=== PATIENT | male | born 1965 | race Caucasian/White ===

== ENCOUNTER 2017-06-22 11:05 | Observation (INO) ==
--- NOTE | 2017-06-22 11:57 | Emergency Department Note ---
Disposition Clinical Impression: Adenopathy Elevated WBC count Qualifiers: Leukocytosis type: unspecified Qualified Code(s): D72.829 - Elevated white blood cell count, unspecified Disposition: Admitted As Inpatient Condition: Good Referrals: Tiny Norwood CNP [Primary Care Provider] - Forms: Work/School Release, ED Satisfaction Letter Time of Disposition: 15:09 Abdominal Pain HPI - General Chief Complaint: ED Abdominal Pain Stated Complaint: groin pain/trouble voiding/constipation Time Seen by Provider: 06/22/17 11:22 Source: patient Mode of arrival: ambulatory Limitations: no limitations Nursing Notes Reviewed: Yes Vital Signs Reviewed: Yes - History of Present Illness HPI Narrative: 51 year old male wih HX of urinnary retention and constipation and has been evaluated and managed with simliar symptoms for the past few months. He was told it was because his constipation causes his prostate to press against his urethra; thus causing urinary retention. Ptinet states that he has had a lewis catheter before and that it helps. OAtinet states that he was following with a doctor in [place]. Patinet state that for the past 2 monnths he has had small trickle of pee and otherwise not emptying his bladder and small pellets of stool. Rezanet states he is now experiencing iincreasd suprapubic pain and that last time he passed stool was 2-3 days ago and he was most recently revaluated at [facility] for simliar symptoms. Patinet denies fevers, nausea, vomitting , or chest pain, or shortness of breath. Rezanet states that he does not have history of kidney stones He does however has a history of UTIs and is concnered that he may have another one. States that the suprapubic pain also radiates mary this bilateral inguinal areas but is not experiencing any testicular pain. or penile discharges. Pain Scale: 10 - Related Data Home Medications Medication Instructions Recorded Confirmed Lovastatin [Altoprev] 40 mg PO DAILY 06/06/17 06/06/17 Previous Rx's Medication Instructions Recorded HydrOXYzine Pamoate [Vistaril] 50 mg PO TID PRN #30 capsule 03/20/17 Ciprofloxacin [Cipro] 500 mg PO BID #14 tablet 06/01/17 Polyethylene Glycol 3350 [MiraLAX] 17 gm PO DAILY #30 powd.pack 06/06/17 Allergies Allergy/AdvReac Type Severity Reaction Status Date / Time Sulfa (Sulfonamide Allergy See Verified 06/06/17 09:17 Antibiotics) Comments Constitutional: Denies: fever, chills, weakness, weight change Eyes: Denies: eye pain, eye discharge, vision change ENT ED: Denies: ear pain, throat pain, dental pain, hearing loss, epistaxis, congestion, dysphagia Cardiovascular: Denies: chest pain, palpitations, dyspnea on exertion, edema, syncope Respiratory: Denies: cough, dyspnea, wheezes, hemoptysis, stridor Gastrointestinal: Reports: as per HPI, abdominal pain, constipation. Denies: nausea, vomiting, diarrhea, hematemesis, melena, hematochezia Genitourinary: Reports: as per HPI. Denies: urgency, dysuria, frequency, hematuria Musculoskeletal: Denies: back pain, neck pain, arthralgia, myalgia Integumentary: Denies: rash, abrasion, lesions Neurological: Denies: headache, weakness, numbness, paresthesias, confusion, abnormal gait, vertigo Psychiatric: Denies: anxiety, depression, suicidal thoughts, homicidal thoughts , auditory hallucinations, visual hallucinations Endocrine: Denies: fatigue Hematological/Lymphatic: Denies: easy bleeding, easy bruising Allergic/Immunologic: Denies: facial swelling, urticaria Abdominal Pain PMH - Past Medical History Medical history: Reports: cancer, hyperlipidemia, other Male Surgical History: Reports: other Psychiatric history: Reports: no psych history - Social History Smoking status: Current every day smoker Alcohol use: Reports: rarely Drug use: Reports: none Physical Exam - General Limitations: no limitations General appearance: alert, in no apparent distress - Head Head exam: atraumatic, normocephalic, normal inspection - Eye Eye exam: Present: normal appearance, PERRL, EOMI - Expanded Eye Exam Pupils: Left: reactive - ENT ENT exam: normal exam, normal oropharynx, mucous membranes moist - Expanded ENT Exam External ear exam: Present: normal external inspection Mouth exam: Present: normal external inspection Teeth exam: Present: normal inspection Throat exam: Present: normal inspection - Neck Neck exam: Present: normal inspection, full ROM, trachea midline - Chest Chest inspection: Present: normal inspection, symmetric chest wall rise - Respiratory Respiratory exam: Present: normal lung sounds bilaterally - Cardiovascular Cardiovascular exam: Present: regular rate, normal rhythm, normal heart sounds - Abdominal Exam Abdominal exam: Present: soft, tenderness. Absent: Non-Tender, distention, guarding, rebound, rigidity Abdominal tenderness: Present: suprapubic, moderate - Male exam: Present: normal inspection, normal testicular lie. Absent: penile swelling, lesions, ulcerations, inguinal hernia, inguinal lymphadenopathy, testicular tenderness, urethral discharge, scrotal swelling - Extremities Exam Extremities exam: Present: normal inspection, full ROM. Absent: tenderness, pedal edema - Expanded Upper Extremity Exam Shoulder exam: Present: normal inspection, full ROM Arm exam: Present: normal inspection, full ROM Elbow exam: Present: normal inspection, full ROM Forearm/Wrist exam: Present: normal inspection, full ROM Hand exam: Present: normal inspection, full ROM Vascular exam: Normal: capillary refill, radial pulse - Expanded Lower Extremity Exam Hip/Pelvis exam: Present: normal inspection, full ROM Upper leg exam: Present: normal inspection, full ROM Knee exam: Present: normal inspection, full ROM Lower leg exam: Present: normal inspection, full ROM Ankle exam: Present: normal inspection, full ROM Foot/toe exam: Present: normal inspection, full ROM Neurovascular/Tendon exam: Absent: motor deficit, sensory deficit, tendon deficit - Back Exam Back exam: Present: normal inspection, full ROM. Absent: tenderness - Neurological Exam Neurological exam: Present: alert, oriented X3 - Expanded Neurological Exam Patient oriented to: Present: person, place, time Coma Scale Eye Opening: Spontaneous Coma Scale Motor Response: Obeys Commands Coma Scale Verbal Response: Oriented Coma Scale Total: 15 - Psychiatric Psychiatric exam: Present: normal affect, normal mood - Skin Skin exam: Present: warm, dry, intact, normal color Course Course Narrative: we will place a lewis catheter and run a urinnalysis. We will also obtain labs and and KUB for constipation evaluation. My suspicion is that this is urinanry renetion and there may be an element of BPH. I do not believe this is a bowel obstruction at this time. If we can relieve the urinary retention it may help with his conspitation. - Reevaluation(s) Reevaluation #1: discused results with patient and we will continue work up with ABCT and because of the elevated WBC we will continue to look fora possile infectious source because on further interviewing of patient he states that he has had chills at night and a productive cough. Time: 12:41 Reevaluation #2: discussed results with patient. The diagnosis of lymphoma vs metastatic cancer. Nj states he was diagnoesd with cancer a few years ago and followe [facility] cancer cetner and recvoered. Nj would like to be admitted to our facility. Time: 15:07 - Consultations Consultation #1: discussed case with Dr. Ayala and she has accepted patient for admission Vital Signs Temperature 98.2 F 06/22/17 11:18 Pulse Rate 109 06/22/17 11:18 Respiratory Rate 20 06/22/17 11:18 Blood Pressure 130/77 06/22/17 11:18 O2 Sat by Pulse Oximetry 95 06/22/17 11:18 Temperature 98.2 F 06/22/17 11:18 Pulse Rate 114 06/22/17 13:00 Respiratory Rate 16 06/22/17 13:00 Blood Pressure 142/91 06/22/17 13:00 O2 Sat by Pulse Oximetry 97 06/22/17 13:00 Oxygen Delivery Oxygen Delivery Room Air Abdominal Pain - Lab Data Result diagrams: 06/22/17 12:17 06/22/17 12:17 Lab Results 06/22/17 06/22/17 06/22/17 Range/Units 12:17 12:17 12:20 WBC 19.7 H (4.3-11.1) K/mcL RBC 4.52 (4.19-5.50) M/mcL Hgb 13.7 (12.9-16.9) g/dL Hct 42.0 (37.5-50.1) % MCV 92.9 (83.0-100.0) fL MCH 30.3 (28.0-33.3) pg MCHC 32.6 (31.6-35.5) g/dL RDW 13.4 (11.5-14.5) % Plt Count 218 (140-400) K/mcL MPV 9.4 (9.4-12.4) fL Immature Gran % 1.5 (0-4) % Seg Neutrophils % 78.5 % Lymphocytes % 12.5 % Monocytes % 6.0 % Eosinophils % 1.1 % Basophils % 0.4 % Neutrophils # 15.5 H (1.6-8.9) K/mcL Lymphocytes # 2.5 (0.6-4.6) K/mcL Monocytes # 1.2 (0.0-1.3) K/mcL Eosinophils # 0.2 (0.0-0.6) K/mcL Basophils # 0.1 (0.0-0.2) K/mcL Sodium 136 (136-145) mEq/L Potassium 4.1 (3.5-4.5) mEq/L Chloride 101 (98-109) mEq/L Carbon Dioxide 29 (19-29) mEq/L BUN 13 (8-26) mg/dL Creatinine 0.86 (0.72-1.25) mg/dL Est GFR ( Amer) > 60 (> 60) Est GFR (Non-Af Amer) > 60 (> 60) BUN/Creatinine Ratio 15 (6-26) Glucose 118 H (70-99) mg/dL Calculated Osmolality 283 (280-300) Lactic Acid (0.5-2.2) mmol/L Calcium 9.7 (8.6-10.8) mg/dL Total Bilirubin 0.7 (0.2-1.2) mg/dL Direct Bilirubin (0.0-0.5) mg/dL Indirect Bilirubin (0.0-1.2) mg/dL AST 24 (5-34) Units/L ALT 50 (0-55) Units/L Alkaline Phosphatase 113 (38-126) Units/L Serum Total Protein 7.7 (6.0-8.3) g/dL Albumin 3.1 L (3.5-5.0) g/dL Globulin 4.6 H (2.4-3.5) g/dL Albumin/Globulin Ratio 0.7 L (1.1-2.2) Lipase (8-78) Units/L Urine Color Dark Yellow (Yellow) Urine Clarity Clear (Clear) Urine pH 5.5 (5.0-8.0) pH Units Ur Specific [place] 1.029 H (1.010-1.025) Urine Protein 30 H (Neg-Trace) mg/dL Urine Glucose (UA) Normal (Normal) mg/dL Urine Ketones Trace H (Negative) mg/dL Urine Blood Negative (Negative) Urine Nitrite Negative (Negative) Urine Bilirubin Small H (Negative) Urine Urobilinogen Normal (Normal) mg/dL Ur Leukocyte Esterase Negative (Negative) Urine Microscopic RBC 0-3 (0-3) per hpf Urine Microscopic WBC 0-3 (0-3) per hpf Ur Squamous Epith Cells Many H (None-Few) per lpf Urine Bacteria None Seen (None-Few) per hpf Hyaline Casts Few (None-Few) per lpf Ur Culture Indicated? NO (NO) 06/22/17 06/22/17 Range/Units 12:45 12:45 WBC (4.3-11.1) K/mcL RBC (4.19-5.50) M/mcL Hgb (12.9-16.9) g/dL Hct (37.5-50.1) % MCV (83.0-100.0) fL MCH (28.0-33.3) pg MCHC (31.6-35.5) g/dL RDW (11.5-14.5) % Plt Count (140-400) K/mcL MPV (9.4-12.4) fL Immature Gran % (0-4) % Seg Neutrophils % % Lymphocytes % % Monocytes % % Eosinophils % % Basophils % % Neutrophils # (1.6-8.9) K/mcL Lymphocytes # (0.6-4.6) K/mcL Monocytes # (0.0-1.3) K/mcL Eosinophils # (0.0-0.6) K/mcL Basophils # (0.0-0.2) K/mcL Sodium (136-145) mEq/L Potassium (3.5-4.5) mEq/L Chloride (98-109) mEq/L Carbon Dioxide (19-29) mEq/L BUN (8-26) mg/dL Creatinine (0.72-1.25) mg/dL Est GFR ( Amer) (> 60) Est GFR (Non-Af Amer) (> 60) BUN/Creatinine Ratio (6-26) Glucose (70-99) mg/dL Calculated Osmolality (280-300) Lactic Acid 1.0 (0.5-2.2) mmol/L Calcium (8.6-10.8) mg/dL Total Bilirubin 0.8 (0.2-1.2) mg/dL Direct Bilirubin 0.4 (0.0-0.5) mg/dL Indirect Bilirubin 0.4 (0.0-1.2) mg/dL AST 24 (5-34) Units/L ALT 50 (0-55) Units/L Alkaline Phosphatase 112 (38-126) Units/L Serum Total Protein 7.5 (6.0-8.3) g/dL Albumin 3.1 L (3.5-5.0) g/dL Globulin 4.4 H (2.4-3.5) g/dL Albumin/Globulin Ratio 0.7 L (1.1-2.2) Lipase 10 (8-78) Units/L Urine Color (Yellow) Urine Clarity (Clear) Urine pH (5.0-8.0) pH Units Ur Specific [place] (1.010-1.025) Urine Protein (Neg-Trace) mg/dL Urine Glucose (UA) (Normal) mg/dL Urine Ketones (Negative) mg/dL Urine Blood (Negative) Urine Nitrite (Negative) Urine Bilirubin (Negative) Urine Urobilinogen (Normal) mg/dL Ur Leukocyte Esterase (Negative) Urine Microscopic RBC (0-3) per hpf Urine Microscopic WBC (0-3) per hpf Ur Squamous Epith Cells (None-Few) per lpf Urine Bacteria (None-Few) per hpf Hyaline Casts (None-Few) per lpf Ur Culture Indicated? (NO)
[2017-06-22 12:24] LABS: Basophils # 0.1 K/mcL (0.0-0.2); Basophils % 0.4 %; Eosinophils # 0.2 K/mcL (0.0-0.6); Eosinophils % 1.1 %; Hemoglobin 13.7 g/dL (12.9-16.9); Immature Granulocytes % 1.5 % (0-4); Lymphocytes # 2.5 K/mcL (0.6-4.6); Lymphocytes % 12.5 %; Mean Corpuscular HGB Conc 32.6 g/dL (31.6-35.5); Mean Corpuscular Hemoglobin 30.3 pg (28.0-33.3); Mean Corpuscular Volume 92.9 fL (83.0-100.0); Mean Platelet Volume 9.4 fL (9.4-12.4); Monocytes # 1.2 K/mcL (0.0-1.3); Neutrophils # 15.5 K/mcL (1.6-8.9); Platelet Count 218 K/mcL (140-400); Red Blood Count 4.52 M/mcL (4.19-5.50); Red Cell Distribution Width 13.4 % (11.5-14.5); Segmented Neutrophils % 78.5 %
[2017-06-22 12:31] LABS: Bilirubin,Urine Small (Negative); Blood,Urine Negative (Negative); Clarity,Urine Clear (Clear); Color,Urine Dark Yellow (Yellow); Glucose,Urine (UA) Normal (Normal); Ketones,Urine Trace mg/dL (Negative); Leukocyte Esterase,Urine Negative (Negative); Nitrite,Urine Negative (Negative); PH,Urine 5.5 pH Units (5.0-8.0); Protein,Urine 30 mg/dL (Neg-Trace); Specific Gravity,Urine 1.029 (1.010-1.025); Urobilinogen,Urine Normal (Normal)
[2017-06-22] MEDS ORDERED: 0.9 % Sodium Chloride 1,000 ML IVC ONE ×2 (12:31→15:09)
[2017-06-22 12:34] LABS: Bacteria,Urine None Seen per hpf (None-Few); Hyaline Casts,Urine Few per lpf (None-Few); RBC,Urine 0-3 per hpf (0-3); Squamous Epithelial Cell,Urine Many per lpf (None-Few); WBC,Urine 0-3 per hpf (0-3)
[2017-06-22 12:36] LABS: Alanine Aminotransferase 50 Units/L (0-55); Albumin 3.1 g/dL (3.5-5.0); Albumin/Globulin Ratio 0.7 (1.1-2.2); Alkaline Phosphatase 113 Units/L (38-126); Aspartate Amino Transferase 24 Units/L (5-34); BUN/Creatinine Ratio 15 (6-26); Bilirubin,Total 0.7 mg/dL (0.2-1.2); Blood Urea Nitrogen 13 mg/dL (8-26); Calcium 9.7 mg/dL (8.6-10.8); Carbon Dioxide 29 mEq/L (19-29); Chloride 101 mEq/L (98-109); Globulin 4.6 g/dL (2.4-3.5); Glucose 118 mg/dL (70-99); Osmolality,Calculated 283 (280-300); Potassium 4.1 mEq/L (3.5-4.5); Sodium 136 mEq/L (136-145); Total Protein 7.7 g/dL (6.0-8.3); eGFR For African Americans > 60 (> 60); eGFR For Non-African Americans > 60 (> 60)
[2017-06-22 13:13] LABS: Albumin 3.1 g/dL (3.5-5.0); Albumin/Globulin Ratio 0.7 (1.1-2.2); Bilirubin,Direct 0.4 mg/dL (0.0-0.5); Bilirubin,Indirect 0.4 mg/dL (0.0-1.2); Bilirubin,Total 0.8 mg/dL (0.2-1.2); Globulin 4.4 g/dL (2.4-3.5); Total Protein 7.5 g/dL (6.0-8.3)
[2017-06-22] MEDS ORDERED: Ketorolac 30 MG/ML VIAL IVP ONE (14:36)
[2017-06-22] MEDS ORDERED: *HR* Morphine 2 MG/ML SYRINGE IVP ONE (15:09)
--- NOTE | 2017-06-22 17:00 | Oncology Inp Consult Note ---
Date of Encounter: 06/22/17 Time of Encounter: 17:00 Assessment and Plan (1) Adenopathy Status: Acute Assessment and plan: Lymphadenopathy, and CT imaging with retroperitoneal common iliac external iliac adenopathy, consider IR biopsy of the lymph node for tissue diagnosis. SC Lns palpable but tiny, may consider for bx as well. Patient is a prior history of non-Hodgkin's lymphoma status post treatment in 2004 at [facility]. Consider complete staging workup with a CT chest versus PET imaging as an outpatient. CEA, PSA added. Labs neutrophilia, leucocytosis noted , reactive. He is scheduled for outpatient colonoscopy procedure in . Will obtain further information on Rx of NHL from [facility]. Plan of care d/w patient in detail, f/u with staging w/u and bx. - Data of Consult Requesting Physician: Kevin Gardner MD Primary Care Provider: Tiny Norwood CNP - Consult Narrative Reason for consult: adenopathy History of present illness: Mr. Lamas is a 51 year old male cr smoking history, of UTIs, urinary retention , hospitalized with leucocytosis, lower abd pain also radiating to groin area. Workup shows diffuse low attenuation in the liver characteristic of hepatic steatosis, metastatic disease could not be ruled out, multiple enlarged retroperitoneal common iliac right external iliac lymphadenopathy left external iliac lymph node measures 2.2 x 3.5 cm per report, suspicious for neoplasm, PET/ CT was recommended. Count was 19.7 neutrophils at 15.5 elevated with a normal BUN and creatinine and normal liver function tests, LDH was normal. UA shows squam epithelial cells wo bacteria. The patient at bedside today, patient gives a prior diagnosis of non-Hodgkin's lymphoma, status post treatment at [facility] in 2004, he had a biopsy of the lymph node in the right axillary region. Review of systems is significant for on and off constipation and difficulty with urination over the last 5 months or so. He denies any blood in stool. He is scheduled for colonoscopy in July of this year. He denies any pain. He has some sweats but denies any drenching night sweats. Past Med Surg Social Fam HX - Past Medical History Medical history: cancer, hyperlipidemia, other Psychiatric history: no psych history - Past Surgical History Surgical History: non-contributory - Social History Smoking Status: Current every day smoker Smokeless Tobacco Status: No Alcohol use: rarely Drug use: none - Family History Mother Living Status: Age at : 65 Hx Family Cardiac Disorders: Yes Hx Family Respiratory Disorders: Yes Hx Family Cancer: Yes Hx Family Genitourinary Disorders: No Hx Family Endocrine Disorder: Yes (Diabetes) Hx Family Musculoskeletal Disorders: No Hx Family Neuromuscular Disorders: No Hx Family Neurologic Disorders: No Hx Family HEENT Disorders: No Hx Family Autoimmune Disorders: No Hx Family Reproductive Disorders: No Hx Family Psychosocial Disorders: No Hx Family Medical Disorders: No Father Living Status: Age at : 67 Cause of : Cancer Medications and Allergies Cetirizine HCl 10 mg PO DAILY 06/22/17 [History] Ciclopirox Olamine [Ciclopirox] 1 appl TP BID PRN 06/22/17 [History] Ketotifen Fumarate [Zaditor] 1 drop OP BID 06/22/17 [History] Lovastatin [Lovastatin] 40 mg PO HS 06/22/17 [History] Polyethylene Glycol 3350 [MiraLAX] 17 gm PO DAILY PRN 06/22/17 [History] Triamcinolone Acet 0.1% CRM [Kenalog] 1 appl TP BID PRN 06/22/17 [History] hydrOXYzine HCl [Hydroxyzine HCl] 12.5 - 50 mg PO Q8H PRN 06/22/17 [History] Allergies Sulfa (Sulfonamide Antibiotics) Allergy (Verified 06/06/17 09:17) See Comments Patient states he doens't know what kind of reaction he has Review of systems: per HPI Oncology - Exam - Constitutional Vitals: Temp Pulse Resp BP Pulse Ox 98.2 F 115 16 121/64 96 06/22/17 11:18 06/22/17 15:00 06/22/17 16:15 06/22/17 16:15 06/22/17 15:00 General appearance: obese - Head Head exam: Present: atraumatic, normal inspection - Eye Eye exam: Present: sclera anicteric - ENT ENT exam: Present: mucous membranes moist - Neck Additional comments: left SC Lns tiny palpable - Respiratory Respiratory exam: Present: CTAB - Cardiovascular Cardiovascular exam: Present: +S1, +S2 - GI/Abdominal GI/Abdominal exam: Present: distended, soft - Extremities Exam Extremities exam: Present: normal inspection - Neurological Exam Neurological exam: Present: alert, CN II-XII intact, oriented X3, no focal deficits Oncology - Results - Imaging and Cardiology CT scan - abdomen Status: image reviewed by me Consult Discharge Plan - Plan Referrals: Tiny Norwood CNP [Primary Care Provider] -
[2017-06-22] MEDS ORDERED: Naloxone 0.4 MG/ML INJ IVP PRN (17:06)
[2017-06-22] MEDS ORDERED: Ondansetron 4 MG/2 ML VIAL IVP PRN (17:06)
[2017-06-22] MEDS ORDERED: Acetaminophen 325 MG TABLET PO PRN (17:06)
[2017-06-22] MEDS ORDERED: Ketorolac 30 MG/ML VIAL IVP PRN (17:06)
--- NOTE | 2017-06-22 17:29 | Internal Med History&Physical ---
<Gayatri Coyne M - Last Filed: 06/22/17 17:18> Date of Encounter: 06/22/17 Time of Encounter: 17:18 Assessment and Plan (1) Adenopathy Current visit: Yes Status: Acute Patient presented with pelvic pain and difficulty urinating and passing stool. CT abd/pelvis shows multiple enlarged retroperitoneal, right common iliac and right external iliac adenopathy, with differential diagnosis including lymphoma vs. testicular zain metastasis. Patient has history of Hodgkin's lymphoma in 2004, in remission. With history of previous lymphoma, concern for recurrence. Consulted oncology. (2) Elevated WBC count Current visit: Yes Status: Acute WBC of 19.7. Patient reporting chills and sweats. He was tachycardic on presentation with HR in 110s. He was afebrile. He meets SIRS criteria with unclear source of infection. UA negative for UTI. CXR showed no acute cardiopulmonary process. Blood cultures drawn and sent. Elevated WBC, chills and sweats may be secondary to lymphoma. Oncology consulted. Patient given Cipro by ED, will hold off on further antibiotics for now. Qualifiers: Leukocytosis type: unspecified Qualified Code(s): D72.829 - Elevated white blood cell count, unspecified (3) Difficulty urinating Current visit: Yes Status: Acute Patient reports difficulty passing urine, with only dribbling over the last few weeks. He was diagnosed with UTI and treated with antibiotics. UA today negative for infection, however WBC elevated and patient tachycardic. ED gave Cipro as previous Urine culture was sensitive to cipro. CT abd/pelvis shows multiple lymphadenopathy in pelvis and retroperitoneal area which is likely contributing to patient's urinary retention. PSA is normal. Altamirano catheter placed. IV fluids 0.9NS at 100mL/hr. (4) Constipation Current visit: Yes Status: Acute Patient complains of constipation with only passing small amount of hard stool. Abdomen distended. Patient is able to tolerate PO. CT abdomen and pelvis showed multiple lymphadenopathy in pelvis and retroperitoneal area which may be contributing to symptoms. Colace BID scheduled Miralax daily PRN. Qualifiers: Constipation type: unspecified constipation type Qualified Code(s): K59.00 - Constipation, unspecified (5) Pelvic pain Current visit: Yes Status: Acute Patient reporting pelvic pain and difficulty passing urine and stool. CT shows pelvic lymphadenopathy. [place], toradol, morphine PRN for pain Narcan PRN for respiratory depression. (6) DVT prophylaxis Current visit: Yes Status: Acute anti-embolic stockings Lovenox SQ daily Internal Medicine - H&P: HPI Chief complaint: pelvic pain Admitted From: Emergency Dept Plans for Post Hospital Care: Home History of present illness: Mr. Lamas is a 51 year old male with hyperlipidemia, history of Hodgkin's lymphoma 2004, now in remission who presented to ED today with complaints of pelvic and groin pain and difficulty passing urine or stool. Patient reports he has had this issue for several weeks, only able to dribble urine and pass small, hard stool. He reports his abdomen is distended. He is able to tolerate food, but is afraid to eat too much. He has presented to Urgent care with these complaints and was recently diagnosed with a UTI for which he took antibiotics, he was also started on miralax to relieve his constipation. However , his symptoms did not improve. He also reports chills and sweats. He denies any lightheadedness, chest pain, palpitations, shortness of breath. He reports cough productive of white sputum, chronic in nature. Evaluation in the ED included UA which was negative for UTI. CXR showed no acute cardiopulmonary process. His WBC was elevated at 19.7 and he was tachycardic with HR in the 110s. CT of the abd and pelvis showed multiple enlarged retroperitoneal, right common iliac and right external iliac adenopathy, with differential diagnosis including lymphoma vs. testicular zain metastasis. He was given 2L of fluid boluses in the ED and given cipro IVPB, morphine and toradol. On exam, patient was alert and oriented in no acute distress. Heart had regular rate (in the 90s ) and rhythm. Lungs were clear to auscultation bilaterally. Abdomen was distended, but soft. Had positive bowel sounds. He was diffusely tender to palpation, but worse in epigastric area, over the bladder and in the groin area. No peripheral edema. Past Med Surg Social Fam HX - Past Medical History Medical history: cancer (Hodgkin's lymphoma 2004), hyperlipidemia, other Psychiatric history: no psych history - Past Surgical History Surgical History: herniorrhaphy - Social History Smoking Status: Current every day smoker (42 pack year history) Packs per day: 1 Smokeless Tobacco Status: No Alcohol use: rarely Drug use: none - Family History Mother Living Status: Age at : 65 Hx Family Cardiac Disorders: Yes Hx Family Respiratory Disorders: Yes Hx Family Cancer: Yes Hx Family Genitourinary Disorders: No Hx Family Endocrine Disorder: Yes (Diabetes) Hx Family Musculoskeletal Disorders: No Hx Family Neuromuscular Disorders: No Hx Family Neurologic Disorders: No Hx Family HEENT Disorders: No Hx Family Autoimmune Disorders: No Hx Family Reproductive Disorders: No Hx Family Psychosocial Disorders: No Hx Family Medical Disorders: No Father Living Status: Age at : 67 Cause of : Cancer Internal Medicine - H&P: Meds Cetirizine HCl 10 mg PO DAILY 06/22/17 [History] Ciclopirox Olamine [Ciclopirox] 1 appl TP BID PRN 06/22/17 [History] Ketotifen Fumarate [Zaditor] 1 drop OP BID 06/22/17 [History] Lovastatin [Lovastatin] 40 mg PO HS 06/22/17 [History] Polyethylene Glycol 3350 [MiraLAX] 17 gm PO DAILY PRN 06/22/17 [History] Triamcinolone Acet 0.1% CRM [Kenalog] 1 appl TP BID PRN 06/22/17 [History] hydrOXYzine HCl [Hydroxyzine HCl] 12.5 - 50 mg PO Q8H PRN 06/22/17 [History] Allergies Sulfa (Sulfonamide Antibiotics) Allergy (Verified 06/06/17 09:17) See Comments Patient states he doens't know what kind of reaction he has All Systems PM: A 10-system review of systems was performed and is negative for pertinent findings except as documented above in the HPI. - Constitutional Constitutional: chills, night sweats, no fever(s) - EENT Eyes: no change in vision, no discharge, no pain, no photophobia Ears: no ear discharge, no ear pain, no tinnitus Nose, mouth and throat: no dysphagia, no nasal discharge, no neck pain, no sore throat - Cardiovascular Cardiovascular ROS IM: no chest pain, no diaphoresis, no dyspnea, no lightheadedness, no palpitations, no syncope - Respiratory Respiratory: cough, no dyspnea, no wheezing, no excessive phlegm production - Gastrointestinal Gastrointestinal: abdominal pain, constipation, no diarrhea, no hematemesis, no hematochezia, no melena, no nausea, no vomiting - Genitourinary Genitourinary ROS male: difficulty urinating, dysuria - Musculoskeletal Musculoskeletal ROS IM: no numbness, no tingling - Integumentary Integumentary IM: no rash, no unusual bruising - Neurological Neurological ROS: no confusion, no convulsions, no focal weakness, no numbness, no tingling, no tremor(s) - Hematologic/Lymphatic Hematologic/Lymphatic: no easy bruising - Constitutional Vitals: Temp Pulse Resp BP Pulse Ox 98.2 F 115 16 121/64 96 06/22/17 11:18 06/22/17 15:00 06/22/17 16:15 06/22/17 16:15 06/22/17 15:00 General appearance: Present: A&O X 3, pleasant, no acute distress, obese - Head Head exam: Present: atraumatic, normocephalic - Eye Eye exam: Present: PERRL, conjuntiva pink, sclera anicteric Pupils: Present: PERRL - Neck Neck exam general surgery: Present: supple, trachea midline. Absent: lymphadenopathy - Respiratory Respiratory exam: Present: CTAB. Absent: accessory muscle use, rales, rhonchi, wheezes - Cardiovascular Cardiovascular exam: Present: RRR, +S1, +S2. Absent: diastolic murmur, gallop, rubs, systolic murmur - GI/Abdominal GI/Abdominal exam: Present: distended, normal bowel sounds, soft, tenderness, no peritoneal signs - exam: Present: normal inspection - Extremities Exam Extremities exam: Present: warm, radial pulses palpable and symmetrical. Absent : calf tenderness, cyanotic, pedal edema - Neurological Exam Neurological exam: Present: CN II-XII intact, oriented X3, no focal deficits. Absent: facial droop, speech deficit - Skin Skin exam: Present: dry, intact Internal Med - H&P Results - Labs CBC & Chem 7: 06/22/17 12:17 06/22/17 12:17 Labs: All Lab Results (24 Hours) 06/22/17 06/22/17 06/22/17 Range/Units 12:17 12:17 12:20 WBC 19.7 H (4.3-11.1) K/mcL RBC 4.52 (4.19-5.50) M/mcL Hgb 13.7 (12.9-16.9) g/dL Hct 42.0 (37.5-50.1) % MCV 92.9 (83.0-100.0) fL MCH 30.3 (28.0-33.3) pg MCHC 32.6 (31.6-35.5) g/dL RDW 13.4 (11.5-14.5) % Plt Count 218 (140-400) K/mcL MPV 9.4 (9.4-12.4) fL Immature Gran % 1.5 (0-4) % Seg Neutrophils % 78.5 % Lymphocytes % 12.5 % Monocytes % 6.0 % Eosinophils % 1.1 % Basophils % 0.4 % Neutrophils # 15.5 H (1.6-8.9) K/mcL Lymphocytes # 2.5 (0.6-4.6) K/mcL Monocytes # 1.2 (0.0-1.3) K/mcL Eosinophils # 0.2 (0.0-0.6) K/mcL Basophils # 0.1 (0.0-0.2) K/mcL Sodium 136 (136-145) mEq/L Potassium 4.1 (3.5-4.5) mEq/L Chloride 101 (98-109) mEq/L Carbon Dioxide 29 (19-29) mEq/L BUN 13 (8-26) mg/dL Creatinine 0.86 (0.72-1.25) mg/dL Est GFR ( Amer) > 60 (> 60) Est GFR (Non-Af Amer) > 60 (> 60) BUN/Creatinine Ratio 15 (6-26) Glucose 118 H (70-99) mg/dL Calculated Osmolality 283 (280-300) Lactic Acid (0.5-2.2) mmol/L Calcium 9.7 (8.6-10.8) mg/dL Total Bilirubin 0.7 (0.2-1.2) mg/dL Direct Bilirubin (0.0-0.5) mg/dL Indirect Bilirubin (0.0-1.2) mg/dL AST 24 (5-34) Units/L ALT 50 (0-55) Units/L Alkaline Phosphatase 113 (38-126) Units/L Lactate Dehydrogenase (159-327) Units/L Serum Total Protein 7.7 (6.0-8.3) g/dL Albumin 3.1 L (3.5-5.0) g/dL Globulin 4.6 H (2.4-3.5) g/dL Albumin/Globulin Ratio 0.7 L (1.1-2.2) Lipase (8-78) Units/L Prostate Specific Ag (0.00-4.00) ng/mL Urine Color Dark Yellow (Yellow) Urine Clarity Clear (Clear) Urine pH 5.5 (5.0-8.0) pH Units Ur Specific [place] 1.029 H (1.010-1.025) Urine Protein 30 H (Neg-Trace) mg/dL Urine Glucose (UA) Normal (Normal) mg/dL Urine Ketones Trace H (Negative) mg/dL Urine Blood Negative (Negative) Urine Nitrite Negative (Negative) Urine Bilirubin Small H (Negative) Urine Urobilinogen Normal (Normal) mg/dL Ur Leukocyte Esterase Negative (Negative) Urine Microscopic RBC 0-3 (0-3) per hpf Urine Microscopic WBC 0-3 (0-3) per hpf Ur Squamous Epith Cells Many H (None-Few) per lpf Urine Bacteria None Seen (None-Few) per hpf Hyaline Casts Few (None-Few) per lpf Ur Culture Indicated? NO (NO) 06/22/17 06/22/17 06/22/17 Range/Units 12:45 12:45 16:42 WBC (4.3-11.1) K/mcL RBC (4.19-5.50) M/mcL Hgb (12.9-16.9) g/dL Hct (37.5-50.1) % MCV (83.0-100.0) fL MCH (28.0-33.3) pg MCHC (31.6-35.5) g/dL RDW (11.5-14.5) % Plt Count (140-400) K/mcL MPV (9.4-12.4) fL Immature Gran % (0-4) % Seg Neutrophils % % Lymphocytes % % Monocytes % % Eosinophils % % Basophils % % Neutrophils # (1.6-8.9) K/mcL Lymphocytes # (0.6-4.6) K/mcL Monocytes # (0.0-1.3) K/mcL Eosinophils # (0.0-0.6) K/mcL Basophils # (0.0-0.2) K/mcL Sodium (136-145) mEq/L Potassium (3.5-4.5) mEq/L Chloride (98-109) mEq/L Carbon Dioxide (19-29) mEq/L BUN (8-26) mg/dL Creatinine (0.72-1.25) mg/dL Est GFR ( Amer) (> 60) Est GFR (Non-Af Amer) (> 60) BUN/Creatinine Ratio (6-26) Glucose (70-99) mg/dL Calculated Osmolality (280-300) Lactic Acid 1.0 (0.5-2.2) mmol/L Calcium (8.6-10.8) mg/dL Total Bilirubin 0.8 (0.2-1.2) mg/dL Direct Bilirubin 0.4 (0.0-0.5) mg/dL Indirect Bilirubin 0.4 (0.0-1.2) mg/dL AST 24 (5-34) Units/L ALT 50 (0-55) Units/L Alkaline Phosphatase 112 (38-126) Units/L Lactate Dehydrogenase 296 (159-327) Units/L Serum Total Protein 7.5 (6.0-8.3) g/dL Albumin 3.1 L (3.5-5.0) g/dL Globulin 4.4 H (2.4-3.5) g/dL Albumin/Globulin Ratio 0.7 L (1.1-2.2) Lipase 10 (8-78) Units/L Prostate Specific Ag 0.64 (0.00-4.00) ng/mL Urine Color (Yellow) Urine Clarity (Clear) Urine pH (5.0-8.0) pH Units Ur Specific [place] (1.010-1.025) Urine Protein (Neg-Trace) mg/dL Urine Glucose (UA) (Normal) mg/dL Urine Ketones (Negative) mg/dL Urine Blood (Negative) Urine Nitrite (Negative) Urine Bilirubin (Negative) Urine Urobilinogen (Normal) mg/dL Ur Leukocyte Esterase (Negative) Urine Microscopic RBC (0-3) per hpf Urine Microscopic WBC (0-3) per hpf Ur Squamous Epith Cells (None-Few) per lpf Urine Bacteria (None-Few) per hpf Hyaline Casts (None-Few) per lpf Ur Culture Indicated? (NO) - Diagnostic Studies Chest x-ray Additional comments: Chest X-Ray 06/22/17 12:36 IMPRESSION: No acute cardiopulmonary process identified. D/ / Murali Suarez MD / Murali Suarez MD Interpreting Provider: Murali Suarez MD CT scan - abdomen Additional comments: Abdomen/Pelvis CT 06/22/17 12:28 IMPRESSION: 1. Multiple enlarged retroperitoneal, right common iliac and right external iliac adenopathy. The differential diagnosis includes lymphoma versus testicular zain metastasis. Consider further evaluation with PET-CT and correlation with physical exam. 2. Multiple indeterminate low-attenuation lesions throughout the liver favoring a benign etiology, but cannot exclude metastatic disease. Consider further evaluation with nonemergent MRI of the abdomen with and without contrast using hemangioma protocol D/ / sIh Blevins MD / Ish Blevins MD Interpreting Provider: Ish Blevins MD Abdominal x-ray Additional comments: KUB X-Ray 06/22/17 12:00 IMPRESSION: 1. Normal bowel gas pattern without evidence of obstruction. 2. Indeterminate circular radiopaque density overlying the right ilium. 3. Sequela of remote trauma involving bilateral superior and inferior pubic rami as well as the pubic symphysis. D/ / 06/22/2017 12:15:39 Jayro Oconnor MD / amando Interpreting Provider: Jayro Oconnor MD <Ricky Ayala - Last Filed: 06/22/17 18:51> Date of Encounter: 06/22/17 Internal Medicine - H&P: HPI History of present illness: Mr. Lamas is a 51 year old male All Systems PM: A 10-system review of systems was performed and is negative for pertinent findings except as documented above in the HPI. - Constitutional Vitals: Temp Pulse Resp BP Pulse Ox 98.3 F 94 20 105/71 94 06/22/17 17:20 06/22/17 17:20 06/22/17 17:20 06/22/17 17:20 06/22/17 17:20 Internal Med - H&P Results - Labs CBC & Chem 7: 06/22/17 12:17 06/22/17 12:17 - Attending Attestation I examined this patient and my medical decision-making was reviewed with the FIELD PRODUCER. I agree with the documented findings, disposition and treatment plan as described .
[2017-06-22] MEDS: *HR* HYDROcodone/Acet 5/325 mg TABLET PO PRN (17:59)
[2017-06-22] MEDS: 0.9 % Sodium Chloride 1,000 ML IVC SCH (17:59)
[2017-06-22] MEDS: *HR* Morphine 2 MG/ML SYRINGE IVP PRN (20:27)
[2017-06-23] MEDS: *HR* Morphine 2 MG/ML SYRINGE IVP PRN ×3 (00:50→09:49)
[2017-06-23] MEDS: *HR* HYDROcodone/Acet 5/325 mg TABLET PO PRN ×5 (02:44→20:25)
[2017-06-23 05:45] LABS: Basophils % 0.3 %; Eosinophils # 0.3 K/mcL (0.0-0.6); Eosinophils % 1.9 %; Hematocrit 34.5 % (37.5-50.1); Lymphocytes # 1.7 K/mcL (0.6-4.6); Mean Corpuscular HGB Conc 33.6 g/dL (31.6-35.5); Mean Corpuscular Hemoglobin 31.3 pg (28.0-33.3); Mean Platelet Volume 9.7 fL (9.4-12.4); Neutrophils # 11.2 K/mcL (1.6-8.9); Platelet Count 170 K/mcL (140-400); Red Blood Count 3.71 M/mcL (4.19-5.50); Red Cell Distribution Width 13.5 % (11.5-14.5); Segmented Neutrophils % 77.8 %
[2017-06-23 05:48] LABS: Hemoglobin 11.6 g/dL (12.9-16.9)
[2017-06-23] MEDS: *HR* Enoxaparin 40 MG/0.4 ML SYRINGE SQ SCH (05:54)
[2017-06-23] MEDS: 0.9 % Sodium Chloride 1,000 ML IVC SCH (06:01)
[2017-06-23 06:02] LABS: BUN/Creatinine Ratio 18 (6-26); Blood Urea Nitrogen 13 mg/dL (8-26); Calcium 8.7 mg/dL (8.6-10.8); Carbon Dioxide 23 mEq/L (19-29); Chloride 106 mEq/L (98-109); Glucose 117 mg/dL (70-99); Osmolality,Calculated 287 (280-300); Potassium 4.1 mEq/L (3.5-4.5); Sodium 138 mEq/L (136-145); eGFR For African Americans > 60 (> 60); eGFR For Non-African Americans > 60 (> 60)
[2017-06-23 06:16] LABS: INR 1.3; Prothrombin Time 13.6 Seconds (9.4-12.1)
--- NOTE | 2017-06-23 13:56 | Internal Med Progress Note ---
Date of Encounter: 06/23/17 Time of Encounter: 08:30 - Assessment and plan (1) Adenopathy Current Visit: Yes Status: Acute Assessment and plan: Patient with history of Hodgkin's lymphoma. Evaluated by oncology. Recommended lymph node biopsy. Interventional radiology has been consulted for CT-guided biopsy. Patient reporting sweats and feeling hot. Concern for constitutional symptoms related to Hodgkin's lymphoma. (2) Constipation Current Visit: Yes Status: Acute Assessment and plan: Remains constipated but passing gas. We will add bisacodyl to treatment plan. Qualifiers: Constipation type: unspecified constipation type Qualified Code(s): K59.00 - Constipation, unspecified (3) Difficulty urinating Current Visit: Yes Status: Acute Assessment and plan: Patient has had multiple visits to the ER for similar complaints. May have underlying BPH although PSA is normal. Having good urine output through Altamirano catheter. Will start Flomax. May discharge patient with Altamirano catheter and arrange outpatient follow-up with urology when medically stable. (4) Elevated WBC count Current Visit: Yes Status: Acute Assessment and plan: WBC count is improving. No source of infection identified. Patient was receiving ciprofloxacin. We will stop antibiotics for now. Qualifiers: Leukocytosis type: unspecified Qualified Code(s): D72.829 - Elevated white blood cell count, unspecified (5) Pelvic pain Current Visit: Yes Status: Acute (6) DVT prophylaxis Current Visit: Yes Status: Acute - Subjective Interval history: Patient continues to have some abdominal pain and discomfort. No nausea or vomiting. Passing flatus but has not had any bowel movement. Has had good urine output through the Altamirano catheter. Complains of sweats and feeling hot. - Constitutional Vitals: Temp Pulse Resp BP Pulse Ox 99.4 F 86 20 107/70 94 06/23/17 11:28 06/23/17 11:28 06/23/17 11:28 06/23/17 11:28 06/23/17 11:28 General appearance: Present: mild distress, A&O X 3, pleasant, obese, answers questions appropriately - Neck Neck exam general surgery: Present: supple, trachea midline. Absent: lymphadenopathy - Respiratory Respiratory exam: Present: CTAB. Absent: accessory muscle use, rales, rhonchi, wheezes - Cardiovascular Cardiovascular exam: Present: RRR, +S1, +S2. Absent: diastolic murmur, gallop, rubs, systolic murmur - GI/Abdominal GI/Abdominal exam: Present: distended, normal bowel sounds, soft, no peritoneal signs. Absent: tenderness - Extremities Exam Extremities exam: Present: warm, radial pulses palpable and symmetrical. Absent : calf tenderness, cyanotic, pedal edema - Neurological Exam Neurological exam: Present: alert, oriented X3, no focal deficits. Absent: facial droop, speech deficit Internal Medicine: Result - Labs CBC & Chem 7: 06/23/17 05:31 06/23/17 05:31 Labs: Short CBC 06/23/17 Range/Units 05:31 WBC 14.4 H (4.3-11.1) K/mcL Hgb 11.6 L D (12.9-16.9) g/dL Hct 34.5 L (37.5-50.1) % Plt Count 170 (140-400) K/mcL Neutrophils # 11.2 H (1.6-8.9) K/mcL BMP 06/23/17 05:31 Sodium 138 Potassium 4.1 Chloride 106 Carbon Dioxide 23 BUN 13 Creatinine 0.73 Glucose 117 H Calcium 8.7 - ABG Interpretation ABG results: PT/INR, D-dimer PT 13.6 Seconds (9.4-12.1) H 06/23/17 05:31 Consult Discharge Plan - Plan Referrals: Tiny Norwood CNP [Primary Care Provider] - 06/29/17 1:00 pm
[2017-06-23] MEDS ORDERED: Bisacodyl 10 MG RECTAL SUPPOSITORY RC PRN (14:13)
[2017-06-23] MEDS ORDERED: *HR* Midazolam HCl 2 MG/2 ML VIAL IVP PRN (15:09)
[2017-06-23] MEDS ORDERED: *HR* FentaNYL (PF) 100 MCG/2 ML VIAL IVP PRN (15:09)
--- NOTE | 2017-06-23 15:16 | Pre-Sedation Evaluation ---
Pre-sedation evaluation - Pre-sedation checklist Date of procedure: 06/23/17 Procedure: LN bx Recent Vitals: Last Vital Signs Temp 99.4 F 06/23/17 11:28 Pulse 86 06/23/17 11:28 Resp 20 06/23/17 11:28 BP 107/70 06/23/17 11:28 Pulse Ox 94 06/23/17 11:28 Dietary Status: NPO 6 hours prior to procedure Airway Assessment: Patient can open mouth completely, TMJ function normal, Micrognathia (under-bite, receding chin) absent, Neck with adequate range of motion ASA Classification *see protocol: CLASS II-Mild systemic disease Plan of Care: Pt appropriate candidate for procedure/moderate/conscious sedation , Risks/benefits of procedure/sedation discussed w/ patient/family, If not NPO; Risk of intake outweiged by necessity to perform procedure
--- NOTE | 2017-06-23 16:08 | IR Procedure Note ---
Date of procedure: 06/23/17 Consent Obtained: Verbal consent, Written consent Timeout: Correct patient and procedure verified, Correct site verified, Time out performed, Skin prep completed Local anesthetic: Lidocaine 1% Indications: NHL Procedure Performed: LN Bx Site/Technique: left neck Estimated blood loss (cc): 2 Complications: None; Tolerated procedure well Post Procedure Treatment Plan: bedrest x 1 hour with HOB > 30 degrees
[2017-06-24] MEDS: *HR* HYDROcodone/Acet 5/325 mg TABLET PO PRN (00:51)
[2017-06-24] MEDS: *HR* Morphine 2 MG/ML SYRINGE IVP PRN ×2 (03:03→10:34)
[2017-06-24] MEDS: *HR* Enoxaparin 40 MG/0.4 ML SYRINGE SQ SCH (05:06)
[2017-06-24 06:17] LABS: Basophils % 0.2 %; Eosinophils # 0.2 K/mcL (0.0-0.6); Eosinophils % 1.5 %; Hematocrit 35.2 % (37.5-50.1); Hemoglobin 11.5 g/dL (12.9-16.9); Immature Granulocytes % 1.3 % (0-4); Lymphocytes # 1.5 K/mcL (0.6-4.6); Lymphocytes % 8.9 %; Mean Corpuscular HGB Conc 32.7 g/dL (31.6-35.5); Mean Corpuscular Hemoglobin 30.2 pg (28.0-33.3); Mean Corpuscular Volume 92.4 fL (83.0-100.0); Mean Platelet Volume 9.9 fL (9.4-12.4); Monocytes % 6.1 %; Neutrophils # 13.4 K/mcL (1.6-8.9); Platelet Count 175 K/mcL (140-400); Red Blood Count 3.81 M/mcL (4.19-5.50); Red Cell Distribution Width 13.4 % (11.5-14.5)
[2017-06-24 06:32] LABS: BUN/Creatinine Ratio 14 (6-26); Blood Urea Nitrogen 9 mg/dL (8-26); Calcium 8.7 mg/dL (8.6-10.8); Carbon Dioxide 23 mEq/L (19-29); Chloride 101 mEq/L (98-109); Glucose 130 mg/dL (70-99); Osmolality,Calculated 276 (280-300); Potassium 3.8 mEq/L (3.5-4.5); Sodium 133 mEq/L (136-145); eGFR For African Americans > 60 (> 60); eGFR For Non-African Americans > 60 (> 60)
[2017-06-24 11:21] VITALS: BP 133/85
--- NOTE | 2017-06-24 13:39 | Discharge Summary ---
Date of Encounter: 06/24/17 Time of Encounter: 13:37 - Discharge Diagnosis (1) Adenopathy Priority: Primary Status: Acute (2) Constipation Priority: Secondary Status: Acute Qualifiers: Constipation type: unspecified constipation type Qualified Code(s): K59.00 - Constipation, unspecified (3) Difficulty urinating Priority: Secondary Status: Acute (4) Elevated WBC count Priority: Secondary Status: Acute Qualifiers: Leukocytosis type: unspecified Qualified Code(s): D72.829 - Elevated white blood cell count, unspecified (5) Pelvic pain Priority: Secondary Status: Acute (6) DVT prophylaxis Priority: Secondary Status: Acute - Discharge Medications Prescriptions: Amoxicillin/Clavulanate [Augmentin] 875 mg PO BIDWM #14 tablet Tamsulosin [Flomax] 0.4 mg PO DAILY #30 cap.er.24h Home Medications: Cetirizine HCl 10 mg PO DAILY 06/22/17 [History] Ciclopirox Olamine [Ciclopirox] 1 appl TP BID PRN 06/22/17 [History] Ketotifen Fumarate [Zaditor] 1 drop OP BID 06/22/17 [History] Lovastatin 40 mg PO HS 06/22/17 [History] Polyethylene Glycol 3350 [MiraLAX] 17 gm PO DAILY PRN 06/22/17 [History] Triamcinolone Acet 0.1% CRM [Kenalog] 1 appl TP BID PRN 06/22/17 [History] hydrOXYzine HCl [Hydroxyzine HCl] 12.5 - 50 mg PO Q8H PRN 06/22/17 [History] Amoxicillin/Clavulanate [Augmentin] 875 mg PO BIDWM #14 tablet 06/24/17 [Rx] Docusate [Colace] 100 mg PO BID 06/24/17 [Rx] Tamsulosin [Flomax] 0.4 mg PO DAILY #30 cap.er.24h 06/24/17 [Rx] Allergies/Adverse Reactions: Allergies Sulfa (Sulfonamide Antibiotics) Allergy (Verified 06/06/17 09:17) See Comments Patient states he doens't know what kind of reaction he has Procedures/tests Complete & Pending: Procedures Performed prior 72 hours Category Date Time Status CT chest w con [CT] Stat Cat Scan 06/23/17 09:[address] guided biopsy [CT] Stat Cat Scan 06/23/17 07:[address] soft tissue neck w con [CT] Stat Cat Scan 06/23/17 09:38 Completed Date of admission: 06/22/17 15:36 Primary care physician: Tiny Norwood CNP Consults: 06/22/17 16:31 Consult to Oncology [CONS] Routine Consulting Provider: [facility] Reason for Consult: 51M with history of Hodgkin's lymphoma in remission, now with lymphadenopathy seen on CT abd/pelvis, concern for recurrence of lymphoma vs. other metastatic cancer Call Completed: No 06/22/17 19:15 Consult to Interventional Radiology [CONS] Routine Consulting Provider: Radiology Interventional [facility] Reason for Consult: CT guided biopsy- retroperitoneal lymph nodes Call Completed: No Discharging clinician: Kevin Gardner Anticipated date of discharge: 06/24/17 - Patient Status Disposition: Home, Self-Care Condition: Good Functional capacity at discharge: independent ambulation Overall status at discharge: patient is progressing back to baseline - Discharge Instructions Instructions: [place] Catheter Placement and Care (DC) Follow Up With: Tiny Norwood CNP [Primary Care Provider] - 06/29/17 1:00 pm Johnie Montalvo MD [Partnered Physician] - (1 week) Additional Instructions: Please follow up with urology in 1 week - Diet and Activity Activity: increase activity as tolerated Diet: low fat, low cholesterol, low salt diet Hospital course: Mr. Lamas is a 51 year old male patient with a history of Hodgkin's lymphoma that was in remission presented to the ER with complaints of urinary retention and constipation. He had been seen in the ER couple of times prior to his current visit in the past month for the same problem. He was diagnosed with urinary tract infection and had been treated for that with ciprofloxacin. His symptoms did not improve. In the ER, he underwent CT scan of the abdomen and pelvis which showed retroperitoneal lymph nodes. Oncology was consulted and they recommended doing a lymph node biopsy. Patient underwent lymph node biopsy yesterday. He did have leukocytosis on presentation and was treated with IV antibiotics. However his urine culture and his chest x-ray were negative for any signs of infection. His leukocytosis did improve but is still elevated and so he will be discharged on empiric treatment with Augmentin. For his constipation and received laxatives which have relieved his constipation. For his urinary retention, he has been placed on a [place] catheter and has been started on Flomax. He will be discharged home with a [place]ano catheter and he will have outpatient follow-up arranged with urology. He will also follow up with oncology for follow-up on his pathology results. - Time Spent with Patient Total time spent providing and/or coordinating discharge services: Greater than 30 minutes (40 min) - Constitutional Vitals: Temp Pulse Resp BP Pulse Ox 98.7 F 97 17 133/85 98 06/24/17 11:17 06/24/17 11:17 06/24/17 11:17 06/24/17 11:06/24/17 11:17 General appearance: Present: mild distress, A&O X 3, pleasant, obese, answers questions appropriately - Respiratory Respiratory exam: Present: CTAB. Absent: accessory muscle use, rales, rhonchi, wheezes - Cardiovascular Cardiovascular exam: Present: RRR, +S1, +S2. Absent: diastolic murmur, gallop, rubs, systolic murmur - GI/Abdominal GI/Abdominal exam: Present: distended, normal bowel sounds, soft, no peritoneal signs. Absent: tenderness - Extremities Exam Extremities exam: Present: warm, radial pulses palpable and symmetrical. Absent : calf tenderness, cyanotic, pedal edema
== END 2017-06-24 15:10 | disposition home or self-care (01) ==
LOC: EMEROO 11:05 → 3ANU 11:05
PROVIDERS: ADMIT Internal Medicine; ATTEND Internal Medicine
PROC: IRLYMPH (2017-06-23 12:00)